=== PATIENT | female | born 1960 | race Caucasian/White ===

== ENCOUNTER → 2023-11-16 17:52 | Outpatient (REF) | payer OTHER, SELFPAY | LOC: WDC 17:52 | PROVIDERS: ATTENDING PHYSICIAN Obstetrics & Gynecology | DX: Z12.31 Encounter for screening mammogram for malignant neoplasm of breast (principal) | CPT/HCPCS: 77063; 77067 ==

== ENCOUNTER → 2024-11-18 17:59 | Outpatient (REF) | payer OTHER, SELFPAY | LOC: WDC 17:59 | PROVIDERS: ATTENDING PHYSICIAN Obstetrics & Gynecology | DX: Z12.31 Encounter for screening mammogram for malignant neoplasm of breast (principal) | CPT/HCPCS: 77063; 77067 ==